=== PATIENT | female | born 1960 | race African-American/Black ===

== ENCOUNTER → 2017-06-01 | Outpatient (CLI) | payer OTHER ==
--- NOTE | 2017-06-01 10:52 | Diagnostic Imaging Report ---
PROCEDURE:ANKLE 3+ VIEWS LEFT, foot 3 views left INDICATION:Ankle pain, foot pain x3 months COMPARISON:None. FINDINGS: No acute, displaced fracture or dislocation. Ankle mortise is maintained. Tibial plafond and talar dome are intact. Appropriate alignment between the medial cuneiforms and second metatarsal base in keeping with an intact Lisfranc ligament. Joint spaces are well-maintained. Soft tissues are unremarkable. CONCLUSION: No acute osseous abnormality. Dictated by: Jhony Fritz M.D. on 06/01/2017 at 10:53 Electronically approved by: Jhony Fritz M.D. on 06/01/2017 at 10:53
--- NOTE | 2017-06-01 10:53 | Diagnostic Imaging Report ---
PROCEDURE:X-RAY LEFT FOOT, COMPLETE COMPARISON:None. INDICATIONS:FOOT PAIN See conclusion CONCLUSION: For full dictated report refer to "ANKLE 3+ VIEWS LEFT" also 06/01/2017. Dictated by: Jhony Fritz M.D. on 06/01/2017 at 10:53 Electronically approved by: Jhony Fritz M.D. on 06/01/2017 at 10:53
== END ==
LOC: RAD 10:27
PROVIDERS: ATTEND Internal Medicine
DX: M25.572 Pain in left ankle and joints of left foot (principal)

== ENCOUNTER → 2017-09-28 | Outpatient (CLI) | payer OTHER | LOC: MAMMO 15:44 | PROVIDERS: ATTEND Internal Medicine | DX: Z12.31 Encounter for screening mammogram for malignant neoplasm of breast (principal) | CPT/HCPCS: 77067 ==

== ENCOUNTER → 2019-02-21 | Outpatient (CLI) | payer OTHER ==
--- NOTE | 2019-02-21 11:07 | Diagnostic Imaging Report ---
EXAMINATION: WRIST COMPLETE RIGHT, HAND 3+ VIEWS RIGHT INDICATION: Right hand and wrist pain COMPARISON: None FINDINGS: Right wrist: No acute fracture or dislocation. Cortical regularity at the lateral aspect of the distal radius compatible with old healed injury. Alignment appears anatomic. No substantial degenerative change. Right hand: No acute fracture or dislocation. Alignment is anatomic. Mild scattered degenerative changes. Soft tissues appear unremarkable. IMPRESSION: No acute osseous injury. Signed by: Mayra Lowe MD on 02/21/2019 11:03 AM
== END ==
LOC: RAD 09:37
PROVIDERS: ATTEND Internal Medicine
DX: M79.641 Pain in right hand (principal); M79.89 Other specified soft tissue disorders

== ENCOUNTER 2019-08-23 20:37 | Emergency (ER) | payer OTHER ==
[~2019-08-23] VITALS: Ht 167.6 cm; Wt 90.7 kg
--- OUTSIDE RECORDS SUMMARY | 2019-08-23 20:40 | XMS REPORT ---
Author Author [facility] t Organization [facility] Address [address] [place] [address] 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 Allergies, Adverse Reactions, Alerts This patient has no known allergies or adverse reactions. Medications This patient has no known medications. Procedures This patient has no known procedures. Results Test Description Test Time Test Comments Results Result Comments Source HAND 3+ VIEWS RIGHT 2019-02-21 11:01:[address] [address] Patient Name: KYLAH SMYTH MR #: [id number] : 1960 Age/Sex: 58/F Req #: [id number] Adm Physician: Ordered by: TERRI JACQUES MD Report #: [id number] Location: [facility] Room/Bed: Procedure: [id number] DX/HAND 3+ VIEWS RIGHT Exam Date: 02/21/19 Exam Time: 0945 REPORT STATUS: Signed EXAMINATION: WRIST COMPLETE RIGHT, HAND 3+ VIEWS RIGHT INDICATION: Right hand and wrist pain COMPARISON: None FINDINGS: Right wrist: No acute fracture or dislocation. Cortical regularity at the lateral aspect of the distal radius compatible with old healed injury. Alignment appears anatomic. No substantial degenerative change. Right hand: No acute fracture or dislocation. Alignment is anatomic. Mild scattered degenerative changes. Soft tissues appear unremarkable. IMPRESSION: No acute osseous injury. Signed by: Vladislav Sheppard MD on 02/21/2019 11:03 AM Dictated By: VLADISLAV SHEPPARD MD 02 Transcribed By: ROLANDO on 02/21/191102 COPY TO: TERRI JACQUES MD WRIST COMPLETE RIGHT 2019-02-21 11:01:00 [place] [address] Patient Name: KYLAH SMYTH MR #: [id number] : 1960 Age/Sex: 58/F Req #: [id number] Adm Physician: Ordered by: TERRI JACQUES MD Report #: [id number] Location: [facility] Room/Bed: Procedure: [id number] DX/WRIST COMPLETE RIGHT Exam Date: 02/21/19 Exam Time: 0945 REPORT STATUS: Signed EXAMINATION: WRIST COMPLETE RIGHT, HAND 3+ VIEWS RIGHT INDICATION: Right hand and wrist pain COMPARISON: None FINDINGS: Right wrist: No acute fracture or dislocation. Cortical regularity at the lateral aspect of the distal radius compatible with old healed injury. Alignment appears anatomic. No substantial degenerative change. Right hand: No acute fracture or dislocation. Alignment is anatomic. Mild scattered degenerative changes. Soft tissues appear unremarkable. IMPRESSION: No acute osseous injury. Signed by: Vladislav Sheppard MD on 02/21/2019 11:03 AM Dictated By: VLADISLAV SHEPPARD MD 02 Transcribed By: ROLANDO on 02/21/191102 COPY TO: TERRI JACQUES MD MAMMOGRAPHY DIGITAL SCR BILAT 2017-09-28 16:41:00 [place] [id number] [place] [address] Patient Name: KYLAH SMYTH MR #: [id number] : 1960 Age/Sex: 57/F Req #: [id number] Adm Physician: Ordered by: TERRI JACQUES MD Report #: [id number] Location: MAMMO Room/Bed: Procedure: [id number] MG/MAMMOGRAPHY DIGITAL SCR BILAT Exam Date: 09/28/17 Exam Time: 1629 REPORT STATUS: Signed #[id number] - [id number] #BILATERAL DIGITAL SCREENING MAMMOGRAM WITH CAD: 09/28/2017 CLINICAL: Routine screening. Comparison is made to exam dated: 12/18/2012 mammogram - [facility]. Current study contains 4 films. There are scattered fibroglandular elements in both breasts. Current study was also evaluated with a Computer Aided Detection (CAD) system. There are benign calcification s in both breasts. 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 No significant masses, calcifications, or other findings are seen in either breast. There has been no significant interval change. IMPRESSION: BENIGN There is no mammographic evidence of malignancy. A 1 year screening mammogram is recommended. The patient will be notified by letter of the results. Violette Jhaveri Jr., D.O. cw/:10/11/2017 08:12:37 Footwear Sales Coordinator: Vanita HA)(Jc), [facility] letter sent: Compared to Prior B9 Mammogram BI-RADS: 2 Benign Dictated By: VIOLETTE JHAVERI DO 1 Transcribed By: CLYDE on 10/11/17811 COPY TO: TERRI JACQUES MD ANKLE 3+ VIEWS LEFT [place] [address] Patient Name: KYLAH SMYTH MR #: [id number] : 1960 Age/Sex: 57/F Req #: [id number] Adm Physician: Ordered by: TERRI JACQUES MD Report #: [id number] Location: [facility] Room/Bed: Procedure: [id number] DX/ANKLE 3+ VIEWS LEFT Exam Date: 06/01/17 Exam Time: 1020 REPORT STATUS: Signed PROCEDURE: ANKLE 3+ VIEWS LEFT, foot 3 views left INDICATION: Ankle pain, foot pain x3 months COMPARISON: None. FINDINGS: No acute, displaced fracture or dislocation. Ankle mortise is maintained. Tibial plafond and talar dome are intact. Appropriate alignment between the medial cuneiforms and second metatarsal base in keeping with an intact Lisfranc ligament. Joint spaces are well-maintained. Soft tissues are unremarkable. CONCLUSION: No acute osseous abnormality. Dictated by: Rahat Schilling M.D. on 06/01/2017 at 10:53 Electronically approved by: Rahat Schilling M.D. on 06/01/2017 at 10:53 Dictated By: RAHAT SCHILLING MD 105 Transcribed By: ALLIE on 06/01/17 105 COPY TO: TERRI JACQUES MD FOOT LEFT COMPLETE [place] [address] Patient Name: KYLAH SMYTH MR #: [id number] : 1960 Age/Sex: 57/F Req #: [id number] Adm Physician: Ordered by: TERRI JACQUES MD Report #: [id number] Location: RAD Room/Bed: Procedure: [id number] DX/FOOT LEFT COMPLETE Exam Date: 06/01/17 Exam Time: 1020 REPORT STATUS: Signed PROCEDURE: X-RAY LEFT FOOT, COMPLETE COMPARISON: None. INDICATIONS: FOOT PAIN See conclusion CONCLUSION: For full dictated report refer to "ANKLE 3+ VIEWS LEFT" also 06/01/2017. Dictated by: Rahat Schilling M.D. on 06/01/2017 at 10:53 Electronically approved by: Rahat Schilling M.D. on 06/01/2017 at 10:53 Dictated By: RAHAT SCHILLING MD 1053 Transcribed By: ALLIE on 06/01/17 1053 COPY TO: TERRI JACQUES MD KNEE LEFT THREE VIEWS [place] [address] Patient Name: KYLAH SMYTH MR #: [id number] : 1960 Age/Sex: 56/F Req #: [id number] Adm Physician: Ordered by: TERRI JACQUES MD Report #: [id number] Location: RAD Room/Bed: Procedure: [id number] DX/KNEE LEFT THREE VIEWS Exam Date: 12/13/16 Exam Time: 1000 REPORT STATUS: Signed PROCEDURE: KNEE LEFT THREE VIEWS COMPARISON: None. INDICATIONS: LEFT KNEE PAIN/SWELLING FINDINGS: No acute, displaced fracture or dislocation. Joint spaces are well-maintained. Small nonspecific suprapatellar joint effusion. Soft tissues are otherwise unremarkable. CONCLUSION: Small nonspecific suprapatellar joint effusion. No acute osseous abnormality. Dictated by: Rahat Schilling M.D. on 12/13/2016 at 10:30 Electronically approved by: Rahat Schilling M.D. on 12/13/2016 at 10:30 Dictated By: RAHAT SCHILLING MD 1030 Transcribed By: ALLIE on 12/13/16 1030 COPY TO: TERRI JACQUES MD
[2019-08-23] MEDS ORDERED: HYDRALAZINE HCL 20 MG/ML VIAL IV ONE (22:45)
[2019-08-23 22:55] LABS: BASOPHILS % 0.5 % (0.0-1.0); EOSINOPHILS # (AUTO) 0.1 (0.0-0.4); EOSINOPHILS % 2.1 % (0.0-6.0); HEMATOCRIT 38.1 % (34.2-44.1); HEMOGLOBIN 11.9 g/dL (12.0-16.0); LYMPHOCYTES # (AUTO) 2.8 (1.0-3.2); LYMPHOCYTES % 49.6 % (18.0-39.1); MEAN CORPUSCULAR HEMOGLOBIN 28.1 pg (28-32); MEAN CORPUSCULAR HGB CONC 31.2 g/dL (31-35); MEAN CORPUSCULAR VOLUME 89.9 fL (81-99); MONOCYTES # (AUTO) 0.6 (0.2-0.8); MONOCYTES % 10.4 % (4.4-11.3); NEUTROPHILS # (AUTO) 2.1 (2.1-6.9); PLATELET COUNT 336 x10e3/uL (140-360); RED BLOOD COUNT 4.24 x10e6/uL (3.6-5.1); RED CELL DISTRIBUTION WIDTH 13.6 % (11.7-14.4)
[2019-08-23 23:09] LABS: ALANINE AMINOTRANSFERASE 17 IU/L (0-55); ALBUMIN/GLOBULIN RATIO 0.9 (0.8-2.0); ALKALINE PHOSPHATASE 86 IU/L (40-150); ANION GAP 16.8 mmol/L (8-16); BLOOD UREA NITROGEN 10 mg/dL (7-26); BUN/CREATININE RATIO 11 (6-25); CALCIUM 10.3 mg/dL (8.4-10.2); CARBON DIOXIDE 24 mmol/L (22-29); CHLORIDE 104 mmol/L (98-107); CREATINE KINASE 141 IU/L (29-168); CREATININE, SERUM 0.88 mg/dL (0.57-1.11); EST GLOMERULAR FILTRATION RATE > 60 ML/MIN (60-); GLUCOSE 101 mg/dL (74-118); POTASSIUM 3.8 mmol/L (3.5-5.1); SODIUM 141 mmol/L (136-145)
[2019-08-24 00:52] VITALS: BP 154/98
--- NOTE | 2019-08-24 01:15 | Emergency Department Note ---
History of Present Illnes History of Present Illness Chief Complaint: Hypertension History of Present Illness This is a 59 year old female arrived to the ED with concerns of high blood pressure. Patient states she is also having epigastric pain after meals. Patient states she does not have a history of high blood pressure is concerned that as recently been elevated. He is here with several new stresses over the past month. Chief Complaint Comment PATIENT PRESENTS TO THE ED DUE TO HAVING HIGH BLOOD PRESSURE READINGS ALL DAY TODAY, PATIENT IS IN NO DISTRESS, HOWEVER STATES THAT SHE HAS NAUSEA. DR HERNANDEZ IN TRIAGE. Historian: Patient Arrival Mode: Car Timing of current episode: unable to specify Chronicity: new Context: recent illness, recent surgery, recent immobilization Past Medical/Family History Physician Review I have reviewed the patient's past medical and family history. Any updates have been documented here. Past Medical History Recent Fever: No Clinical Suspicion of Infectio: No New/Unexplained Change in Ment: No Past Medical History: Hyperlipedemia Past Surgical History: None Social History Smoking Cessation: Never Smoker Counseling Performed: No Alcohol Use: None Any Illegal Drug Use: No TB Exposure/Symptoms: No Physically hurt or threatened: No Other Last Tetanus: UNKNOWN Any Pre-Existing Lines (PICC,: No Is patient up to date on immun: Yes Last Flu: UTD Last Pneumovax: UTD Review of Systems Review of Systems Constitutional: no symptoms EENTM: no symptoms Cardiovascular: no symptoms Respiratory: no symptoms Gastrointestinal: no symptoms, abdominal pain Genitourinary: no symptoms Musculoskeletal: no symptoms Neurological: no symptoms Psychological: no symptoms Endocrine: no symptoms Hematological/Lymphatic: no symptoms Review of other systems All other systems reviewed and negative. Physical Exam Related Data Allergies: Coded Allergies: No Known Allergies (Unverified , 08/23/19) Triage Vital Signs Vital Signs Date Time Temp Pulse Resp B/P (MAP) Pulse Ox O2 Delivery O2 Flow Rate FiO2 08/23/19 21:55 97.6 82 18 167/94 100 Physical Exam CONSTITUTIONAL Constitutional: well-developed, well-nourished, obese HENT HENT: normocephalic, atraumatic, oropharynx clear/moist, nose normal HENT L/R: left ext ear normal, right ext ear normal EYES Eyes: PERRL, conjunctivae normal NECK Neck: ROM normal PULMONARY Pulmonary: effort normal, breath sounds normal CARDIOVASCULAR Cardiovascular: regular rhythm, heart sounds normal, capillary refill normal, normal rate GASTROINTESTINAL Abdominal: soft, nontender, bowel sounds normal GENITOURINARY Genitourinary: exam deferred SKIN Skin: warm, dry MUSCULOSKELETAL Musculoskeletal: ROM normal NEUROLOGICAL Neurological: alert, oriented x 3, no gross motor or sensory deficits PSYCHOLOGICAL Psychological: mood/affect normal, judgement normal Results Laboratory Result Diagram: 08/23/19220608/23/192206 Laboratory Laboratory Tests Test 08/23/19 22:07 White Blood Count 5.60 x10e3/uL (4.8-10.8) Red Blood Count 4.24 x10e6/uL (3.6-5.1) Hemoglobin 11.9 g/dL (12.0-16.0) Hematocrit 38.1 % (34.2-44.1) Mean Corpuscular Volume 89.9 fL (81-99) Mean Corpuscular Hemoglobin 28.1 pg (28-32) Mean Corpuscular Hemoglobin Concent 31.2 g/dL (31-35) Red Cell Distribution Width 13.6 % (11.7-14.4) Platelet Count 336 x10e3/uL (140-360) Neutrophils (%) (Auto) 37.0 % (38.7-80.0) Lymphocytes (%) (Auto) 49.6 % (18.0-39.1) Monocytes (%) (Auto) 10.4 % (4.4-11.3) Eosinophils (%) (Auto) 2.1 % (0.0-6.0) Basophils (%) (Auto) 0.5 % (0.0-1.0) Neutrophils # (Auto) 2.1 (2.1-6.9) Lymphocytes # (Auto) 2.8 (1.0-3.2) Monocytes # (Auto) 0.6 (0.2-0.8) Eosinophils # (Auto) 0.1 (0.0-0.4) Basophils # (Auto) 0.0 (0.0-0.1) Absolute Immature Granulocyte (auto 0.02 x10e3/uL (0-0.1) Sodium Level 141 mmol/L (136-145) Potassium Level 3.8 mmol/L (3.5-5.1) Chloride Level 104 mmol/L (98-107) Carbon Dioxide Level 24 mmol/L (22-29) Anion Gap 16.8 mmol/L (8-16) Blood Urea Nitrogen 10 mg/dL (7-26) Creatinine 0.88 mg/dL (0.57-1.11) Estimat Glomerular Filtration Rate > 60 ML/MIN (60-) BUN/Creatinine Ratio 11 (6-25) Glucose Level 101 mg/dL (74-118) Calcium Level 10.3 mg/dL (8.4-10.2) Total Bilirubin 0.5 mg/dL (0.2-1.2) Aspartate Amino Transf (AST/SGOT) 21 IU/L (5-34) Alanine Aminotransferase (ALT/SGPT) 17 IU/L (0-55) Alkaline Phosphatase 86 IU/L (40-150) Creatine Kinase 141 IU/L (29-168) Creatine Kinase MB 1.10 ng/mL (0-5.0) Troponin I 0.012 ng/mL (0-0.300) Total Protein 8.5 g/dL (6.5-8.1) Albumin 4.0 g/dL (3.5-5.0) Globulin 4.5 g/dL (2.3-3.5) Albumin/Globulin Ratio 0.9 (0.8-2.0) Lab results reviewed: Yes Imaging Imaging results reviewed: Yes Procedures 12 Lead ECG Interpretation 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 Assessment & Plan Reassessment Reassessment 59-year-old well-appearing female arrived to the ED with complaints of high blood pressure without any history. Patient edema antihypertensive here, asymptomatic. Discussed the importance of outpatient follow-up and the need for possible fish medications. Patient did not want any blood pressure medications given in the ED control. States she would ra ther follow-up with her PCP for further management. Assessment & Plan Final Impression: (1) ENCOUNTER FOR EXAM OF BLOOD PRESSURE W/O ABNORMAL FINDINGS Assessment & Plan CBC, CMP Follow-up with your CT as an outpatient Depart Disposition: HOME, SELF-CARE Last Vital Signs Date Time Temp Pulse Resp B/P (MAP) Pulse Ox O2 Delivery O2 Flow Rate FiO2 08/24/19 00:52 76 17 98 5/30/20 21:55 97.6 167/94 Medications in the ED Hydralazine HCl 5 mg ONCE ONCE IV ; Start 08/23/19 at 22:45; Stop 08/24/19 at 00:55; Status DC PEPE HERNANDEZ DO August 24, 2019 01:15
--- NOTE | 2019-08-24 01:16 | Diagnostic Imaging Report ---
EXAMINATION: CHEST SINGLE (NOT PORTABLE) INDICATION: Chest pain. COMPARISON: None FINDINGS: TUBES and LINES: None. LUNGS: Normal lung volumes. Lungs are clear. No consolidations. PLEURA: No pleural effusion or pneumothorax. HEART AND MEDIASTINUM: The cardiomediastinal silhouette is unremarkable. BONES AND SOFT TISSUES: No acute osseous lesion. Soft tissues are unremarkable. Degenerative changes in the spine. UPPER ABDOMEN: No free air under the diaphragm. IMPRESSION: No acute thoracic radiographic abnormality. Signed by: Ranjit Betancourt DO on 08/24/2019 1:12 AM
== END 2019-08-24 00:54 | disposition home or self-care (01) ==
LOC: ER 20:37
DX: R10.13 Epigastric pain (principal); R03.0 Elevated blood-pressure reading, without diagnosis of hypertension; R11.0 Nausea; E78.5 Hyperlipidemia, unspecified
CPT/HCPCS: 36415; 71045; 80053; 82550; 82553; 84484; 85025; 93005; 99283

== ENCOUNTER → 2020-05-24 | Outpatient (CLI) | payer SELFPAY | LOC: RAD 10:54 | PROVIDERS: ATTEND Internal Medicine | DX: M25.562 Pain in left knee (principal) ==

== ENCOUNTER → 2022-09-14 | Outpatient (CLI) | payer BC | LOC: MAMMO 09:36 | PROVIDERS: ATTEND Internal Medicine | DX: Z12.31 Encounter for screening mammogram for malignant neoplasm of breast (principal) | CPT/HCPCS: 77067 ==

== ENCOUNTER → 2023-10-25 | Outpatient (REF) | payer OTHER | LOC: MAMMO 12:25 | PROVIDERS: ATTEND Internal Medicine | DX: Z12.31 Encounter for screening mammogram for malignant neoplasm of breast (principal) | CPT/HCPCS: 77067 ==